=== PATIENT | male | born 1935 | race Caucasian/White ===

== ENCOUNTER 2016-08-31 00:49 | Day surgery (SDC) | payer MEDICARE, OTHER ==
[~2016-08-31] VITALS: Ht 170.2 cm; Wt 80.0 kg
[2016-08-31] VITALS (9 sets, daily range): BP systolic 118–145; BP diastolic 47–75; PULSE 60–65; RESP 14–19; O2SAT 97–100
[~2016-08-31 00:49] MED LIST: ASA325 PO; CARV3125 PO; HYG25 PO; LISI40TA13 PO; SMV40T PO
[2016-08-31] MEDS ORDERED: CARV12.52 PO (07:53)
[2016-08-31] MEDS ORDERED: FLUT100B IH (07:53)
[2016-08-31] MEDS ORDERED: FURO-128 PO (07:53)
[2016-08-31] MEDS ORDERED: UMEC1DIS IH (07:53)
[2016-08-31] MEDS ORDERED: LOSA100T29 PO (07:53)
[2016-08-31] MEDS ORDERED: IPRA30SP8 NS (07:53)
[2016-08-31] MEDS ORDERED: ATOR20TA PO (07:53)
[2016-08-31] MEDS ORDERED: ASPI-973 PO (07:53)
[2016-08-31] MEDS ORDERED: SILD20TA14 PO (07:55)
[2016-08-31] MEDS ORDERED: ALBU8.5H2 INHALATION (07:55)
[2016-08-31] MEDS ORDERED: SPIR25TA3 PO (07:55)
[2016-08-31] MEDS ORDERED: ALBU18HF INH (07:57)
[2016-08-31] MEDS ORDERED: CHOL200025 PO (07:57)
[2016-08-31 08:32] LABS: EOSINOPHILS % (AUTO) 3.7 % (0-5); MONOCYTES % (AUTO) 10.2 % (4-12); Mean Corpuscular Hemoglobin 31.1 pg (27.0-35.0); Mean Corpuscular Volume 91.5 fL (81-100); NEUTROPHILS % (AUTO) 67.7 % (40-74); Platelet Count 242 bil/L (150-400)
[2016-08-31] MEDS ORDERED: Heparin 1,000 Units/500 mL NS Premix IV ONE (09:55)
[2016-08-31] MEDS ORDERED: Heparin 10,000 Unit/1,000 mL NS Premix IV ONE (09:55)
[2016-08-31] MEDS ORDERED: Heparin 1,000 Unit/mL 10 mL Inj ONE (10:38)
--- NOTE | 2016-08-31 11:46 | CS94 ---
[address] [address] DIAGNOSTIC CARDIAC CATHETERIZATION PATIENT: EDGAR WOODS : 1935 MR#: [id number] ADMIT: 08/31/2016 JOB ID: [id number] SERVICE DATE: 08/31/2016 PROCEDURE: Right and left heart catheterization. INDICATION: Aortic stenosis. Heart failure. PROCEDURAL DETAILS: The reader and the corders are referred to the procedure log for complete details. Briefly, it was done via right femoral approach using a long 6-Russian sheath and a 5-Russian sheath was placed in the right femoral vein. Right heart catheterization was done with a right coronary catheter. ANGIOGRAPHIC FINDINGS: 1. Mild calcification of the aortic valve is noted on fluoroscopy. The LAD has stents in its proximal portion. These stents are widely patent. 2. Left main ostial 20% lesion, no critical stenosis. 3. Left anterior descending has ostial 20% to 30% lesion. There are stents in the proximal to mid segments. The stents are widely patent. The rest of the vessel has mild luminal irregularities. 4. Circumflex is dominant. It is free of any critical stenosis. Ramus intermedius is a moderate caliber vessel free of any disease. 5. Right coronary artery small and nondominant. 6. Left heart catheterization revealed an LVEDP of 20. There was about a 20 mm gradient upon pullback. Mean gradient was 25.6. 7. Right heart catheterization revealed RV pressure of 37/3. RV EDP was around 11. PA pressure was 27/9, mean 16. RA pressure was a mean of 8. 8. Cardiac output was 4.4 L. This was by Magaly methodology. PA sat was 70, and aortic sat was 99%. This gave us a valve area of 1.0. SUMMARY: This gentleman has severe aortic stenosis. Given his history of heart failure and left ventricular dysfunction, I have recommended transcatheter aortic valve replacement. Left anterior descending stents are patent. Continue with risk factor modification and medical therapy for coronary artery disease.
== END 2016-08-31 23:59 | disposition home or self-care (01) ==
LOC: SOUO 00:49
PROVIDERS: ATTEND Internal Medicine Cardiovascular Disease
DX: I35.0 Nonrheumatic aortic (valve) stenosis (principal); I50.9 Heart failure, unspecified; E78.5 Hyperlipidemia, unspecified; I44.7 Left bundle-branch block, unspecified; I25.10 Atherosclerotic heart disease of native coronary artery without angina pectoris; I25.5 Ischemic cardiomyopathy; K21.9 Gastro-esophageal reflux disease without esophagitis; Z95.810 Presence of automatic (implantable) cardiac defibrillator; Z95.5 Presence of coronary angioplasty implant and graft; Z87.891 Personal history of nicotine dependence; Z79.82 Long term (current) use of aspirin; Z82.49 Family history of ischemic heart disease and other diseases of the circulatory system